=== PATIENT | male | born 1990 | race Caucasian/White ===

== ENCOUNTER 2016-08-18 16:45 | Emergency (ER) | payer OTHER ==
[~2016-08-18] VITALS: Ht 165.1 cm; Wt 59.0 kg
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
[2016-08-18] MEDS ORDERED: IBUPROFEN800 M1 PO (17:52)
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
[2016-08-18 18:04] VITALS: BP 124/80
== END 2016-08-18 18:04 ==
LOC: ERH 16:45
DX: S29.012A Strain of muscle and tendon of back wall of thorax, initial encounter (principal); S20.211A Contusion of right front wall of thorax, initial encounter; V49.40XA Driver injured in collision with unspecified motor vehicles in traffic accident, initial encounter; Y92.410 Unspecified street and highway as the place of occurrence of the external cause